=== PATIENT | female | born 1980 | race African-American/Black ===

== ENCOUNTER 2020-03-20 14:19 | Emergency (ER) | payer SELFPAY ==
[~2020-03-20] VITALS: Ht 167.6 cm; Wt 60.0 kg
[2020-03-20 14:27] VITALS: Ht 167.6 cm; Wt 60.0 kg
[2020-03-20] MEDS ORDERED: MEGACE40 MG PO (14:28)
[2020-03-20] MEDS ORDERED: ELIQUIS5 MG PO (14:28)
[2020-03-20 15:01] LABS: BASOPHILS 0.5 % (0-2); EOSINOPHILS 0 % (0-7); HEMATOCRIT 41.1 % (36.0-48.0); HEMOGLOBIN 14.2 g/dL (12-16); IMMATURE GRANULOCYTES 0.2 % (0-5); LYMPHOCYTES 11.9 % (15-50); MCH 31.8 pg (26.0-34.0); MCHC 34.5 g/dL (31.0-37.0); MCV 91.9 fL (80.0-100.0); MEAN PLATELET VOLUME 10.6 fL (7.4-10.4); MONOCYTES 2.9 % (2-11); NEUTROPHILS 84.5 % (40-80); PLATELET COUNT 169 10x3/uL (130-400); RBC 4.47 10x6/uL (4.00-5.40); RDW 13.1 % (11.5-14.5); WBC 6.5 10x3/uL (4.8-10.8)
[2020-03-20 15:12] LABS: ANION GAP 20.7 mmol/L (8-16); CALCIUM 9.6 mg/dL (8.5-10.1); CARBON DIOXIDE 21.9 mmol/L (21.0-32.0); POTASSIUM - SERUM 3.6 mmol/L (3.5-5.1)
[2020-03-20 15:18] LABS: BILIRUBIN - TOTAL 0.97 mg/dL (0.2-1.3); PROTEIN - SERUM 9.2 g/dL (6.4-8.2)
[2020-03-20 16:54] VITALS: BP 144/78
== END 2020-03-20 16:56 | disposition left against medical advice (07) ==
LOC: D.ER 14:19
PROVIDERS: Family Medicine
DX: R10.9 Unspecified abdominal pain (principal); E07.9 Disorder of thyroid, unspecified; Z53.29 Procedure and treatment not carried out because of patient's decision for other reasons; R11.10 Vomiting, unspecified